=== PATIENT | male | born 1985 | race Caucasian/White ===

== ENCOUNTER 2017-12-10 17:07 | Emergency (ER) | payer OTHER ==
[2017-12-10 17:19] VITALS: BP 150/85
[2017-12-10] MEDS ORDERED: LIDOCAINE 2% INJ (20 MG/ML) 20 ML MDV INJ ONE (17:31)
[2017-12-10] MEDS ORDERED: TETANUS/DIPHTHERIA TOX-ADULT 0.5 ML SYR (>=7YO) IM ONE (17:34)
--- NOTE | 2017-12-10 17:36 | ER Document Report ---
ED General - General Chief Complaint: Laceration Stated Complaint: LACERATION TO LEFT MIDDLE FINGER Time Seen by Provider: 12/10/17 17:30 TRAVEL OUTSIDE OF THE [place] IN LAST 30 DAYS: No - HPI Notes: 32-year-old male presents status post laceration to his left third finger. Patient was handling a piece of clean sheet-metal when he slipped and lacerated the back of his finger. Minimal blood loss on scene. Sharp burning pain, nonradiating. No other injury. Tetanus is out of date. No other modifying factors, no other associated symptoms, no other provocative or palliative factors. - Related Data Allergies/Adverse Reactions: No Known Allergies Allergy (Verified 12/10/17 17:07) Past Medical History - General Information source: Patient - Social History Smoking Status: Never Smoker Family History: Reviewed & Not Pertinent - Medical History Medical History: Negative - Immunizations Hx Diphtheria, Pertussis, Tetanus Vaccination: Yes Review of Systems - Review of Systems Notes: He denies any head injury, chest pain, abdominal pain. Otherwise as history of present illness Physical Exam - Vital signs Vitals: Temp Pulse Resp BP Pulse Ox 98.3 F 99 17 150/85 H 97 12/10/17 17:17 12/10/17 17:17 12/10/17 17:17 12/10/17 17:17 12/10/17 17:17 - Notes Notes: General: Well-developed, well-nourished HEENT: Normocephalic. No external trauma noted. No mcbride sign, no hemotympanum. Mucosa is moist. No intraoral trauma. Neck: Midline trachea, no JVD. No midline cervical spine tenderness. No step- off or deformity. Chest: Normal excursion, no accessory muscle use. No gross trauma. Abdomen: Soft, nondistended. Nontender. No bruising. Pelvis: Stable. Vascular: Strong and symmetric upper and lower extremity pulses. Well-perfused extremities. Motor: Normal tone and power. Neurologic: Alert, nonfocal. Sensation symmetric and intact. Skin: No significant lacerations or purpura. Extremities: No cyanosis. Approximately 2 cm laceration noted to the dorsomedial aspect of the third finger distally, crosses the DIP. Mild gaping. Control bleeding. No foreign body. Course - Re-evaluation Re-evalutation: Well-appearing male with isolated laceration to his finger. Plan update tetanus , we will anesthetized via digital block, clean wound and repair. Ditches will need to be removed in 7-10 days. 12/10/17 18:16 Procedure note: Local anesthesia is achieved with 2% lidocaine with epinephrine. Wound is irrigated copiously explored, no evidence of tenderness, vascular or nerve disruption. The wound is then closed in a single layer using 5-0 Ethilon, there is good tissue approximation cosmesis, no complications. There is a total of 2 cm of wound closure achieved. - Vital Signs Vital signs: Temp Pulse Resp BP Pulse Ox 98.3 F 99 17 150/85 H 97 12/10/17 17:17 12/10/17 17:17 12/10/17 17:17 12/10/17 17:17 12/10/17 17:17 Discharge - Discharge Clinical Impression: Finger laceration Qualifiers: Encounter type: initial encounter Finger: middle finger Damage to nail status: without damage Foreign body presence: without foreign body Laterality: left Qualified Code(s): S61.213A - Laceration without foreign body of left middle finger without damage to nail, initial encounter Disposition: HOME, SELF-CARE Instructions: Laceration Care ([facility]) Additional Instructions: Sutures to be removed in 7-10 days
== END 2017-12-10 18:27 | disposition home or self-care (01) ==
LOC: ER 17:07
DX: S61.213A Laceration without foreign body of left middle finger without damage to nail, initial encounter (principal); W45.8XXA Other foreign body or object entering through skin, initial encounter; Z23 Encounter for immunization
CPT/HCPCS: 99282; 90471; 90714; 12001; J3490